=== PATIENT | male | born 1975 | race African-American/Black ===

== ENCOUNTER 2019-12-04 16:27 | Emergency (ER) | payer MEDICAID ==
[~2019-12-04] VITALS: Ht 193 cm; Wt 99.8 kg
[~2019-12-04 16:27] MED LIST: COUMADIN
[2019-12-04 18:58] LABS: INR 2.63 (0.9-1.15)
[2019-12-04] MEDS ORDERED: traMADol HCL 50 MG TAB PO ONE (20:00)
[2019-12-04] MEDS ORDERED: BACLOFEN 10 MG TAB PO ONE (20:00)
[2019-12-04 20:09] VITALS: BP 127/80
== END 2019-12-04 20:55 | disposition home or self-care (01) ==
LOC: ER 16:27
DX: S33.5XXA Sprain of ligaments of lumbar spine, initial encounter (principal); M62.830 Muscle spasm of back; F17.210 Nicotine dependence, cigarettes, uncomplicated; Z88.5 Allergy status to narcotic agent; Z79.899 Other long term (current) drug therapy; W01.198A Fall on same level from slipping, tripping and stumbling with subsequent striking against other object, initial encounter; Y93.89 Activity, other specified; Y92.89 Other specified places as the place of occurrence of the external cause; Y99.8 Other external cause status
CPT/HCPCS: 36415; 72100; 85610; 85730